=== PATIENT | male | born 1975 | race Two or more races ===

== ENCOUNTER → 2018-01-08 | Outpatient (CLI) | payer OTHER ==
[~2018-01-08] VITALS: Ht 182.9 cm; Wt 127.0 kg
== END | disposition home or self-care (01) ==
LOC: PPHC 09:40
DX: R51 Headache (principal)

== ENCOUNTER → 2018-01-08 | Emergency (ER) | payer OTHER | END | disposition left against medical advice (07) | LOC: ER 00:05 | DX: Z53.20 Procedure and treatment not carried out because of patient's decision for unspecified reasons (principal) ==

== ENCOUNTER 2018-01-09 09:08 | Outpatient (CLI) | payer OTHER | END 2018-01-09 09:14 | disposition home or self-care (01) | LOC: LAB 09:08 | DX: Z00.00 Encounter for general adult medical examination without abnormal findings (principal) ==

== ENCOUNTER 2018-09-27 12:23 | Outpatient (CLI) | payer OTHER | END 2018-09-27 17:04 | disposition home or self-care (01) | LOC: RAD 12:23 | DX: R05 Cough (principal) ==

== ENCOUNTER → 2018-11-08 06:31 | Outpatient (CLI) | payer OTHER | END | disposition home or self-care (01) | LOC: LAB 06:31 | DX: Z00.00 Encounter for general adult medical examination without abnormal findings (principal); R10.9 Unspecified abdominal pain; E78.89 Other lipoprotein metabolism disorders ==

== ENCOUNTER 2018-12-23 07:55 | Outpatient (CLI) | payer OTHER | END 2018-12-23 08:05 | disposition home or self-care (01) | LOC: LAB 07:55 | DX: R10.9 Unspecified abdominal pain (principal) ==

== ENCOUNTER 2018-12-23 09:54 | Outpatient (CLI) | payer OTHER | END 2018-12-23 11:47 | disposition home or self-care (01) | LOC: SONOGRAMA 09:54 | DX: R10.9 Unspecified abdominal pain (principal) ==

== ENCOUNTER 2019-01-08 10:01 | Outpatient (CLI) | payer OTHER | END 2019-01-08 15:00 | disposition home or self-care (01) | LOC: LAB 10:01 | DX: N20.0 Calculus of kidney (principal); R94.5 Abnormal results of liver function studies; Z51.81 Encounter for therapeutic drug level monitoring ==

== ENCOUNTER 2019-01-13 09:29 | Outpatient (CLI) | payer OTHER | END 2019-01-13 09:41 | disposition home or self-care (01) | LOC: TOM 09:29 | DX: K40.20 Bilateral inguinal hernia, without obstruction or gangrene, not specified as recurrent (principal); R16.0 Hepatomegaly, not elsewhere classified ==

== ENCOUNTER 2019-03-26 10:32 | Outpatient (CLI) | payer OTHER | END 2019-03-26 10:50 | disposition home or self-care (01) | LOC: MRI 10:32 | DX: M54.5 Low back pain (principal) | CPT/HCPCS: 72148 ==

== ENCOUNTER → 2019-04-11 09:37 | Outpatient (CLI) | payer OTHER | END | disposition home or self-care (01) | LOC: LAB 09:37 | DX: K40.30 Unilateral inguinal hernia, with obstruction, without gangrene, not specified as recurrent (principal); Z01.811 Encounter for preprocedural respiratory examination ==

== ENCOUNTER 2019-04-15 06:46 | Day surgery (SDC) | payer OTHER | END 2019-04-15 14:25 | disposition home or self-care (01) | LOC: CIR.AMB 06:46 | DX: K40.30 Unilateral inguinal hernia, with obstruction, without gangrene, not specified as recurrent (principal) ==

== ENCOUNTER 2021-12-06 02:00 | Outpatient (CLI) | payer OTHER | END 2021-12-06 02:30 | disposition home or self-care (01) | LOC: PPH VACUNA 02:00 | PROVIDERS: ATTEND Emergency Medicine Pediatric Emergency Medicine | DX: Z23 Encounter for immunization (principal) ==

== ENCOUNTER 2023-04-05 06:30 | Day surgery (SDC) | payer OTHER | END 2023-04-05 10:30 | disposition home or self-care (01) | LOC: AMB-ENDOS 06:30 → CIR.AMB 08:42 → AMB-ENDOS 10:30 | PROVIDERS: ATTEND Internal Medicine Gastroenterology | DX: Z12.11 Encounter for screening for malignant neoplasm of colon (principal); K30 Functional dyspepsia; Z80.0 Family history of malignant neoplasm of digestive organs; Z20.822 Contact with and (suspected) exposure to COVID-19 ==

== ENCOUNTER → 2024-01-21 09:59 | Outpatient (CLI) | payer OTHER ==
[2024-01-21 10:46] LABS: CREATININE SERUM 0.97 mg/dL (0.70-1.30)
== END | disposition home or self-care (01) ==
LOC: LAB 09:59
PROVIDERS: ATTEND Radiology Diagnostic Radiology
DX: R10.30 Lower abdominal pain, unspecified (principal)

== ENCOUNTER 2024-01-24 07:58 | Outpatient (CLI) | payer OTHER | END 2024-01-24 08:03 | disposition home or self-care (01) | LOC: TOM 07:58 | PROVIDERS: ATTEND Internal Medicine Gastroenterology | DX: Z80.0 Family history of malignant neoplasm of digestive organs (principal) ==

== ENCOUNTER 2024-01-29 08:47 | Outpatient (CLI) | payer OTHER ==
[2024-01-29 09:16] LABS: HEMATOCRIT 47.4 % (39.0-48.0); HEMOGLOBIN 15.4 g/dL (13-16.00); MEAN CELL VOLUME 76.7 fL (80.0-100.00); MEAN CORPUSCULAR HEMOGLOBIN 24.9 pg (27.00-32.0); MEAN CORPUSCULAR HGB CONC 32.4 g/dl (32.0-36.0); PLATELET COUNT 267 K/uL (150-450); RED BLOOD COUNT 6.17 M/uL (4.00-6.00); RED CELL DISTRIBUTION WIDTH 16.7 % (11.5-14.5)
[2024-01-29 09:19] LABS: PH,URINE 5.5 (5.0-8.0); URINE APPEARANCE Clear; URINE BILIRRUBIN Negative (NEGATIVE); URINE BLOOD Trace; URINE COLOR Yellow; URINE GLUCOSE Negative (NEGATIVE); URINE LEUKOCYTE Negative; URINE NITRATE Negative; URINE PROTEIN Negative (NEGATIVE)
[2024-01-29 09:24] LABS: URINE RBC 7.1 uL (0.0-20.8); URINE WBC 2.3 uL (0.0-23.2)
[2024-01-29 09:29] LABS: URINE BACTERIA 3.7 uL (0.0-1933); URINE EPITHELIAL CELLS 0.6 uL (0.0-38.8)
[2024-01-29 10:20] LABS: ALBUMIN 4.1 gm/dL (3.4-5.0); BILIRUBIN TOTAL 1.27 mg/dL (0.3-1.2); CALCIUM 9.2 mg/dL (8.5-10.1); CHOL HDL RATIO 4.6 (0-5.0); CREATININE SERUM 1.05 mg/dL (0.70-1.30); GFR 75.39; GLOBULINA 3.4 G/DL (2.4-3.5); POTASSIUM 4.36 mEq/L (3.5-5.1); TOTAL PROTEIN 7.5 gm/dL (6.4-8.2); TSH 2.74 uIU/mL (0.358-3.74)
[2024-01-29 11:46] LABS: VITAMIN D3 25 HYDROXY 23.4 ng/ml (30-120)
== END 2024-01-29 08:48 | disposition home or self-care (01) ==
LOC: LAB 08:47
DX: D64.9 Anemia, unspecified (principal); E53.8 Deficiency of other specified B group vitamins; E11.9 Type 2 diabetes mellitus without complications; E55.9 Vitamin D deficiency, unspecified; R30.0 Dysuria; E75.6 Lipid storage disorder, unspecified

== ENCOUNTER → 2024-02-05 | Day surgery (SDC) | payer OTHER ==
[~2024-02-05] MED LIST: FentaNYL CITRATE/PF 50MCG/ML 2ML VIAL IJ STA; MIDAZOLAM HCL 2 MG/2 ML VIAL IV STA
== END | disposition home or self-care (01) ==
LOC: AMB-ENDOS 07:33
PROVIDERS: ATTEND Internal Medicine Gastroenterology
DX: K29.00 Acute gastritis without bleeding (principal); K21.9 Gastro-esophageal reflux disease without esophagitis; R10.13 Epigastric pain

== ENCOUNTER → 2025-01-26 09:11 | Outpatient (CLI) | payer OTHER ==
[2025-01-26 10:17] LABS: HEMATOCRIT 43.7 % (39.0-48.0); HEMOGLOBIN 14.2 g/dL (13-16.00); MEAN CELL VOLUME 76.3 fL (80.0-100.00); MEAN CORPUSCULAR HEMOGLOBIN 24.8 pg (27.00-32.0); MEAN CORPUSCULAR HGB CONC 32.5 g/dl (32.0-36.0); PLATELET COUNT 281 K/uL (150-450); RED BLOOD COUNT 5.72 M/uL (4.00-6.00); RED CELL DISTRIBUTION WIDTH 16.8 % (11.5-14.5)
[2025-01-26 10:20] LABS: PH,URINE 5.5 (5.0-8.0); URINE APPEARANCE Clear; URINE BILIRRUBIN Negative (NEGATIVE); URINE BLOOD Negative; URINE COLOR Yellow; URINE GLUCOSE Negative (NEGATIVE); URINE KETONE Negative (NEGATIVE); URINE LEUKOCYTE Negative; URINE NITRATE Negative; URINE PROTEIN Negative (NEGATIVE); URINE UROBILINOGEN 0.2 E.U./dl
[2025-01-26 10:22] LABS: URINE BACTERIA 6.1 uL (0.0-1933); URINE RBC 4.8 uL (0.0-20.8); URINE WBC 2.9 uL (0.0-23.2)
[2025-01-26 10:26] LABS: URINE CAST 0.14 uL (0.0-1.40); URINE EPITHELIAL CELLS 0.6 uL (0.0-38.8)
[2025-01-26 11:11] LABS: ALBUMIN 3.9 gm/dL (3.4-5.0); BILIRUBIN TOTAL 1.16 mg/dL (0.3-1.2); CALCIUM 9.4 mg/dL (8.5-10.1); CHOL HDL RATIO 3.7 (0-5.0); CREATININE SERUM 1.15 mg/dL (0.70-1.30); GFR 67.59; GLOBULINA 3.3 G/DL (2.4-3.5); POTASSIUM 4.9 mEq/L (3.5-5.1); PROSTATIC SPECIFIC ANTIGEN 0.514 NG/ML (0.010-4.00); TOTAL PROTEIN 7.2 gm/dL (6.4-8.2)
== END | disposition home or self-care (01) ==
LOC: LAB 09:11
PROVIDERS: ATTEND Internal Medicine
DX: I10 Essential (primary) hypertension (principal); Z01.810 Encounter for preprocedural cardiovascular examination; E03.9 Hypothyroidism, unspecified; Z12.11 Encounter for screening for malignant neoplasm of colon; N41.0 Acute prostatitis; G47.30 Sleep apnea, unspecified; G47.33 Obstructive sleep apnea (adult) (pediatric); N41.8 Other inflammatory diseases of prostate

== ENCOUNTER → 2025-01-28 10:23 | Outpatient (CLI) | payer OTHER ==
[2025-01-28 11:14] LABS: ob NEGATIVE (NEGATIVE)
== END | disposition home or self-care (01) ==
LOC: LAB 10:23
PROVIDERS: ATTEND Internal Medicine
DX: E03.9 Hypothyroidism, unspecified (principal); I10 Essential (primary) hypertension; Z01.810 Encounter for preprocedural cardiovascular examination; Z12.11 Encounter for screening for malignant neoplasm of colon; N41.0 Acute prostatitis; G47.33 Obstructive sleep apnea (adult) (pediatric); G47.30 Sleep apnea, unspecified; N41.8 Other inflammatory diseases of prostate

== ENCOUNTER → 2025-08-14 09:27 | Outpatient (CLI) | payer OTHER ==
[2025-08-14 10:14] LABS: BASO % 0.7 % (0.1-1.2); EOS # 0.19 (0.04-0.54); EOS % 2.8 % (0.7-7.0); LYMPH # 2.24 (1.18-3.74); LYMPH % 33.3 % (19.3-53.1); MEAN PLATELET VOLUME 9.70 fl (9.4-12.4); MONO # 0.53 (0.24-0.82); MONO % 7.9 % (4.7-12.5); NEUT # 3.71 (1.56-6.13); NEUT % 55.2 % (34.0-71.1); RED CELL DISTRIBUTION WIDTH 16.4 % (11.6-14.4)
[2025-08-14 10:15] LABS: URINE APPEARANCE Clear; URINE BILIRRUBIN Negative (NEGATIVE); URINE BLOOD Trace; URINE COLOR Yellow; URINE GLUCOSE Negative (NEGATIVE); URINE KETONE Negative (NEGATIVE); URINE LEUKOCYTE Negative; URINE NITRATE Negative; URINE PROTEIN Negative (NEGATIVE); URINE UROBILINOGEN 1.0 E.U./dl
[2025-08-14 10:20] LABS: URINE RBC 11.8 uL (0.0-20.8)
[2025-08-14 10:46] LABS: URINE BACTERIA 2.3 uL (0.0-1933); URINE CAST 0.14 uL (0.0-1.40); URINE EPITHELIAL CELLS 0.9 uL (0.0-38.8); URINE WBC 1.3 uL (0.0-23.2)
[2025-08-14 11:04] LABS: ALT/SGPT 29.0 U/L (12-78); AST/SGOT 16.0 U/L (15-37); BILIRUBIN TOTAL 1.37 mg/dL (0.3-1.2); BUN CREA RATIO 12.0 (7.0-25.0); CHOL HDL RATIO 3.7 (0-5.0); CREATININE SERUM 1.02 mg/dL (0.70-1.30); GFR 77.31; GLOBULINA 3.5 G/DL (2.4-3.5); GLUCOSE FASTING 89.0 mg/dL (65-100); HDL 47.0 mg/dl (40-60); LDL 118.0 mg/dl (0-130); OSMOLALITY SERUM 284.0 MOSM/KG (275-295); PROSTATIC SPECIFIC ANTIGEN 0.481 NG/ML (0.010-4.00); VLDL 10.0 (0-39)
== END | disposition home or self-care (01) ==
LOC: LAB 09:27
DX: D64.9 Anemia, unspecified (principal); N39.0 Urinary tract infection, site not specified; N40.1 Benign prostatic hyperplasia with lower urinary tract symptoms; E11.9 Type 2 diabetes mellitus without complications; E78.5 Hyperlipidemia, unspecified

== ENCOUNTER 2025-11-23 07:32 | Outpatient (CLI) | payer OTHER | END 2025-11-23 07:38 | disposition home or self-care (01) | LOC: TOM 07:32 | PROVIDERS: ATTEND Internal Medicine Gastroenterology | DX: K21.9 Gastro-esophageal reflux disease without esophagitis (principal); Z80.0 Family history of malignant neoplasm of digestive organs; R10.30 Lower abdominal pain, unspecified; K30 Functional dyspepsia; K40.91 Unilateral inguinal hernia, without obstruction or gangrene, recurrent; R10.10 Upper abdominal pain, unspecified ==